=== PATIENT | male | born 1970 | race African-American/Black ===

== ENCOUNTER 2017-09-12 00:04 | Emergency (ER) | payer OTHER ==
[~2017-09-12] VITALS: Ht 185.4 cm; Wt 82.0 kg
[~2017-09-12 00:04] MED LIST: IBUP600 PO; PENI500T PO
[2017-09-12 00:26] VITALS: BP 142/78; PULSE 60; RESP 18; TEMP 98.3; O2SAT 98
[2017-09-12] MEDS ORDERED: NORC5TAB PO (02:43)
[2017-09-12] MEDS ORDERED: AMOX500T PO (02:43)
[2017-09-12] MEDS ORDERED: DICL75TA PO (02:43)
[2017-09-12] MEDS ORDERED: AMOXICILLIN (TRIHYDRATE) 500 MG CAP PO ONE (02:45)
[2017-09-12] MEDS ORDERED: ACETAMINOPHEN/HYDROcodone 325 MG/5 MG TAB PO ONE (02:45)
--- NOTE | 2017-09-12 02:48 | PD ---
HPI Chief Complaint: Oral / Dental Pain or Problem Time Seen by Provider: 02:36 Travel History International Travel<30 days: No Contact w/Intl Traveler<30days: No Traveled to known affect area: No History of Present Illness HPI 47-year-old black male presents emergency department complains of dental pain. He states that he has had a dental cavity in his right lower mandible for quite some time. He states that over the past week it has gotten increasingly painful. He states that the pain radiates up into his ear as well as causes pain in his throat. He denies any fever or chills. No nausea vomiting. Symptoms are moderate. No alleviating or exacerbating activity. PFSH Past Medical History Asthma: Yes Heart Rhythm Problems: No Cardiac Catheterization: No Cardiovascular Problems: No High Cholesterol: No ("not that I know of") Congestive Heart Failure: No Diabetes: No Diminished Hearing: No Tetanus Vaccination: Unknown Influenza Vaccination: Yes Past Surgical History Coronary Artery Bypass Graft: No Eye Surgery: Yes (EYE LID A CHILD ) Social History Alcohol Use: No Tobacco Use: No Substance Use: No Allergies-Medications (Allergen,Severity, Reaction): Coded Allergies: No Known Allergies (Verified Adverse Reaction, Unknown, 09/12/17) Reported Meds & Prescriptions Reported Meds & Active Scripts Active Diclofenac Sodium DR (Diclofenac Sodium) 75 Mg Tabdr 75 Mg PO BID [place] (Hydrocodone-Acetaminophen) 5 Mg-325 Mg Tab 1 Tab PO Q6H PRN Amoxicillin 500 Mg Tab 500 Mg PO TID Review of Systems General / Constitutional: No: Fever Eyes: No: Visual changes HENT: Positive: Sore Throat, Dental Difficulties, Earache, No: Headaches, Congestion, Gingival Bleeding Cardiovascular: No: Chest Pain or Discomfort Respiratory: No: Shortness of Breath Gastrointestinal: No: Abdominal Pain Genitourinary: No: Dysuria Musculoskeletal: No: Pain Skin: No Rash Neurologic: No: Weakness Psychiatric: No: Depression Endocrine: No: Polydipsia Hematologic/Lymphatic: No: Easy Bruising Physical Exam Narrative GENERAL: Well-developed, well-nourished in no acute distress. Nontoxic appearing. HEAD: Normocephalic, atraumatic. EYES: Pupils equal round and reactive. Extraocular motions intact. No scleral icterus. No injection or drainage. ENT: TMs clear without erythema. The external auditory canals clear. Nose: clear . Posterior pharynx is pink and moist. No tonsillar edema or exudate. Uvula midline. Airway patent. The patient has a large dental carry in his right lower second molar. There is no significant gingival erythema or edema. Positive pain to percussion. NECK: Trachea midline.Supple, nontender, moves head freely. No central bony tenderness or spasm. CARDIOVASCULAR: Regular rate and rhythm without murmurs, gallops, or rubs. RESPIRATORY: Clear to auscultation. Breath sounds equal bilaterally. No wheezes , rales, or rhonchi. GASTROINTESTINAL: Abdomen soft, non-tender, nondistended. No hepato-splenomegaly , or palpable masses. No guarding. EXTREMITIES: No clubbing, cyanosis, or edema. No joint tenderness, effusion, or edema noted. BACK: Nontender without deformity or crepitance. No flank tenderness. Data Data Last Documented VS Vital Signs Date Time Temp Pulse Resp B/P (MAP) Pulse Ox O2 Delivery O2 Flow Rate FiO2 09/12/17 00:26 98.3 60 18 142/78 (99) 98 Orders Orders Amoxicillin (Trimox) (09/12/17 02:45) Acetamin-Hydrocod 325-5 Mg ([place] 5-325 (09/12/17 02:45) Ed Discharge Order (09/12/17 02:43) [facility] Medical Decision Making Medical Screen Exam Complete: Yes Emergency Medical Condition: Yes Medical Record Reviewed: Yes Differential Diagnosis MDM: Moderate Differential diagnoses: Dental abscess, dental caries, osteitis, cellulitis Narrative Course This is dental caries, dentalgia. Patient is given [place] 5 mg and amoxicillin 1 g p.o. Diagnosis Primary Impression: Dentalgia Additional Impression: Dental caries Patient Instructions: Narcotic given in the ED, General Instructions Additional Instructions: Rest. Saltwater gargles. [place] oil on cotton balls. Amoxicillin, [place] and diclofenac. follow-up with a dentist as soon as possible. And return to the ER if any problems. Med/Other Pt SpecificInfo: Prescription(s) given Scripts Diclofenac Sodium (Diclofenac Sodium DR) 75 Mg Tabdr 75 MG PO BID, #14 TAB 0 Refills Prov: Jignesh Hussein MD 09/12/17 Hydrocodone-Acetaminophen ([place]) 5 Mg-325 Mg Tab 1 TAB PO Q6H Y for PAIN, #6 TAB 0 Refills Prov: Jignesh Hussein MD 09/12/17 Amoxicillin (Amoxicillin) 500 Mg Tab 500 MG PO TID for Infection, #30 TAB 0 Refills Prov: Jignesh Hussein MD 09/12/17 Disposition: 01 DISCHARGE HOME Condition: Stable [place] Colon Sep 12, 2017 02:48
== END 2017-09-12 03:09 | disposition home or self-care (01) ==
LOC: NEPD 00:04
DX: K02.9 Dental caries, unspecified (principal)
CPT/HCPCS: 99283